=== PATIENT | male | born 1950 | race Caucasian/White ===

== ENCOUNTER 2023-05-24 18:16 | Emergency (ER) | payer MEDICARE, OTHER ==
[2023-05-24 19:10] LABS: BASOPHILS # (AUTO) 0.1 10^3/uL (0.0-0.1); BASOPHILS % (AUTO) 1.4 %; EOSINOPHILS # (AUTO) 0.1 10^3/uL (0.0-0.7); EOSINOPHILS % (AUTO) 0.7 %; HCT - HEMATOCRIT 37.5 % (42.0-52.0); HGB - HEMOGLOBIN 12.4 g/dL (14.0-18.0); LYMPHOCYTES # (AUTO) 1.6 10^3/uL (1.5-3.5); LYMPHOCYTES % (AUTO) 21.9 %; MEAN CORPUSCULAR HGB CONC 33.1 g/dL (32.0-36.0); MEAN CORPUSCULAR VOLUME 87.6 fL (80.0-94.0); MONOCYTES # (AUTO) 0.8 10^3/uL (0.0-1.0); MONOCYTES % (AUTO) 10.5 %; NEUTROPHILS # (AUTO) 4.7 10^3/uL (1.5-6.6); NEUTROPHILS % (AUTO) 64.8 %; PLT - PLATELET COUNT 331 10^3/uL (130-450); RED BLOOD COUNT 4.28 10^6/uL (4.70-6.10); RED CELL DISTRIBUTION WIDTH 12.9 % (12.0-15.0); WHITE BLOOD COUNT 7.2 x10^3/uL (4.8-10.8)
[2023-05-24 19:21] LABS: ALBUMIN/GLOBULIN RATIO 1.3 (1.0-2.2); BILIRUBIN,TOTAL 1.2 mg/dL (0.2-1.0); CREATININE 0.8 mg/dL (0.6-1.2); POTASSIUM 3.7 mmol/L (3.5-5.0)
--- NOTE | 2023-05-24 19:34 | ED Physician Documentation ---
History of Present Illness - Stated complaint Stated Complaint: CONFUSED/WEAKNESS - Chief complaint Chief Complaint: General - Additonal information Additional information: Patient 73-year-old male presenting to the emergency department with generalized weakness and diffuse myalgias x6 weeks. Reports has history of chronic knee pain. Received an arthrocentesis to his right knee approximately 6 weeks ago At an outside hospital in [place]. Since that time reports has had general body aches, pain particularly with his joints including shoulders bilaterally, fatigue that is made it difficult for him to get moving in the mornings and at night. And pain particularly at night that is diffuse and total body. He endorses for a low-grade fever of 99.0 a few days ago. States has been taking ibuprofen at home with minimal relief. Does report that he has follow-up with his primary care doctor at the [facility] in the next few days. Review of Systems Constitutional: reports: Fever, Myalgias, Fatigue Eyes: denies: Loss of vision Ears: denies: Loss of hearing Nose: denies: Rhinorrhea / runny nose Throat: denies: Dental pain / toothache Cardiac: denies: Chest pain / pressure Respiratory: denies: Dyspnea GI: denies: Abdominal Pain : denies: Dysuria Musculoskeletal: reports: Extremity pain, Joint pain Neurologic: reports: Generalized weakness. denies: Focal weakness, Numbness, Difficulty speaking, Near syncope, Syncope, Seizure, Confused, Altered mental status, Unresponsive, Headache Endocrine: reports: Polydypsia Immunocompromised: reports: Immunocompromised PD PAST MEDICAL HISTORY - Present Medications Home Medications: Ambulatory Orders Medication Instructions Recorded Confirmed predniSONE [Deltasone] 20 mg PO DAILY #5 tablet 05/24/23 - Allergies Allergies/Adverse Reactions: Allergies Allergy/AdvReac Type Severity Reaction Status Date / Time No Known Drug Allergies Allergy Verified 05/24/23 18:23 Results - Vitals Vitals: Vital Signs - 24 hr 05/24/23 05/24/23 05/24/23 18:23 20:42 21:39 Temperature 37.4 C Heart Rate 106 H 63 66 Respiratory 20 16 16 Rate Blood Pressure 134/74 H 127/74 126/75 O2 Saturation 99 100 100 Oxygen O2 Source Room air - EKG (time done) 2031 EKG releavant findings:: EKG personally interpreted by author of this note. Relevant findings are: Sinus rhythm with rate 64 bpm. Normal axis. Normal IA, QRS, QTc intervals. No ST segment elevations or T wave inversions. - Labs Labs: Laboratory Tests 05/24/23 05/24/23 05/24/23 19:00 19:03 19:03 WBC 7.2 RBC 4.28 L Hgb 12.4 L Hct 37.5 L MCV 87.6 MCH 29.0 MCHC 33.1 RDW 12.9 Plt Count 331 MPV 9.0 Neut # (Auto) 4.7 Lymph # (Auto) 1.6 [place] # (Auto) 0.8 Eos # (Auto) 0.1 Baso # (Auto) 0.1 Absolute Nucleated RBC 0.00 Nucleated RBC % 0.0 Sodium 137 Potassium 3.7 Chloride 104 Carbon Dioxide 25 Anion Gap 8.0 BUN 27 H Creatinine 0.8 Estimated GFR (MDRD) 95 Glucose 169 H Estimat Average Glucose Hemoglobin A1c % Calcium 9.0 Total Bilirubin 1.2 H AST 15 ALT 13 Alkaline Phosphatase 101 Total Creatine Kinase C-Reactive Protein Total Protein 7.0 Albumin 4.0 Globulin 3.0 Albumin/Globulin Ratio 1.3 Lipase 47 Urine Color DARK YELLOW Urine Clarity CLEAR Urine pH 5.5 Ur Specific [place] >=1.030 H Urine Protein NEGATIVE Urine Glucose (UA) 100 H Urine Ketones TRACE Urine Occult Blood NEGATIVE Urine Nitrite NEGATIVE Urine Bilirubin NEGATIVE Urine Urobilinogen 0.2 (NORMAL) Ur Leukocyte Esterase NEGATIVE Ur Microscopic Review NOT INDICATED Urine Culture Comments NOT INDICATED 05/24/23 05/24/23 19:03 19:03 WBC RBC Hgb Hct MCV MCH MCHC RDW Plt Count MPV Neut # (Auto) Lymph # (Auto) [place] # (Auto) Eos # (Auto) Baso # (Auto) Absolute Nucleated RBC Nucleated RBC % Sodium Potassium Chloride Carbon Dioxide Anion Gap BUN Creatinine Estimated GFR (MDRD) Glucose Estimat Average Glucose 100 Hemoglobin A1c % 5.1 Calcium Total Bilirubin AST ALT Alkaline Phosphatase Total Creatine Kinase 22 C-Reactive Protein 3.5 H Total Protein Albumin Globulin Albumin/Globulin Ratio Lipase Urine Color Urine Clarity Urine pH Ur Specific [place] Urine Protein Urine Glucose (UA) Urine Ketones Urine Occult Blood Urine Nitrite Urine Bilirubin Urine Urobilinogen Ur Leukocyte Esterase Ur Microscopic Review Urine Culture Comments PD Medical Decision Making - ED course Complexity details: reviewed old records, reviewed results, re-evaluated patient, considered differential, d/w patient, d/w family ED course: Patient is 73-year-old male presenting to the emergency department with several weeks of myalgias, fatigue worse in the morning. He specifically describes myalgias and discomfort around his hips and shoulders. No headache, blurred vision or double vision. Reports and [facility] that demonstrated an elevated C-reactive protein greater than 10. Lab work in the emergency department today is reassuring although he does demonstrate a mild elevation in C-reactive protein at 3.5. No indications of rhabdomyolysis or severe electrolyte abnormality. He was mildly hyperglycemic and I did obtain a hemoglobin A1c which was within normal limits. Overall his clinical presentation is concerning for polymyalgia rheumatica given that he has had symptoms ongoing for greater than the last 2 weeks with elevated C-reactive protein and I discussed this possibility with him. He was amenable to trialing a course of oral prednisone to see if this improves his symptoms. I will otherwise encourage him to follow-up with his primary care doctor or return to the emergency department. Departure - Departure Disposition: 01 Home, Self Care Clinical Impression: Polymyalgia rheumatica Prescriptions: predniSONE [Deltasone] 20 mg PO DAILY #5 tablet Comments: Thank you for allowing us to care for you today at [facility]. Today in the emergency department your evaluated for any possible life- threatening medical emergency. Overall your testing here in the emergency department including your blood work, urine analysis and your EKG were reassuring. Your hemoglobin A1c was 5.1 which is within a normal limit. You did have an elevated CRP at 3.5. Overall your symptoms including your generalized weakness, low level fevers at home and joint pain/myalgias are consistent with a condition known as polymyalgia rheumatica. As we discussed definitive diagnosis of this condition can be difficult and it is extremely important that you follow-up with your primary care doctor. And we discussed options here in the emergency department and you feel comfortable beginning a short course of oral steroids. You are given a dose of a long-acting oral steroid on his Decadron here in the emergency department and I have written a prescription for low-dose prednisone to be taken for the next 5 days. Please follow-up with your primary care doctor soon as possible. If it anytime you develop new or worsening symptoms please not hesitate to return. Discharge Date/Time: 05/24/23 21:47
[2023-05-24 19:44] LABS: GLUCOSE, URINE (UA) 100 mg/dL (NEGATIVE); KETONES,URINE (UA) TRACE mg/dL (NEGATIVE); LEUKOCYTE ESTERASE, URINE NEGATIVE (NEGATIVE); NITRITE,URINE NEGATIVE (NEGATIVE); OCCULT BLOOD,URINE NEGATIVE (NEGATIVE); PH,URINE 5.5 PH (5.0-7.5); PROTEIN,URINE NEGATIVE (NEGATIVE); UROBILINOGEN,URINE 0.2 (NORMAL) E.U./dL (NORMAL)
[2023-05-24] MEDS ORDERED: INDOMETHACIN 25 MG CAPSULE PO STA (19:48)
[2023-05-24 19:49] LABS: BILIRUBIN,URINE NEGATIVE (NEGATIVE); CLARITY,URINE CLEAR (CLEAR); ICTOTEST,URINE NEGATIVE
[2023-05-24] MEDS ORDERED: KETOROLAC 60 MG/2 ML VIAL IM STA (20:02)
[2023-05-24 20:05] LABS: CRP - C-REACTIVE PROTEIN 3.5 mg/dL (0-1.0)
[2023-05-24 20:42] LABS: ESTIMATED AVERAGE GLUCOSE 100 mg/dL (70-100); HEMOGLOBIN A1c% 5.1 % (4.27-6.07)
[2023-05-24] MEDS ORDERED: DEXAMETHASONE 10 MG/ML VIAL PO STA (21:01)
[2023-05-24] MEDS ORDERED: CHERRY SYRUP 10 ML UDC PO ONE (21:01)
[2023-05-24 21:40] VITALS: BP 126/75
== END 2023-05-24 21:47 | disposition home or self-care (01) ==
LOC: ED 18:16
DX: M35.3 Polymyalgia rheumatica (principal)
CPT/HCPCS: 36415; 80053; 81003; 82550; 83036; 83690; 85025; 86140; 93005; 99283; 99284; A9270; 81001; 87086

== ENCOUNTER 2023-09-03 12:40 | Outpatient (CLI) | payer MEDICARE ==
[2023-09-03 20:03] LABS: BASOPHILS # (AUTO) 0.1 10^3/uL (0.0-0.1); BASOPHILS % (AUTO) 0.8 %; EOSINOPHILS % (AUTO) 0.5 %; HCT - HEMATOCRIT 40.9 % (42.0-52.0); LYMPHOCYTES # (AUTO) 1.2 10^3/uL (1.5-3.5); LYMPHOCYTES % (AUTO) 19.5 %; MEAN CORPUSCULAR HGB CONC 31.8 g/dL (32.0-36.0); MEAN CORPUSCULAR VOLUME 91.3 fL (80.0-94.0); MEAN PLATELET VOLUME 9.1 fL (7.4-11.4); MONOCYTES # (AUTO) 0.3 10^3/uL (0.0-1.0); MONOCYTES % (AUTO) 5.5 %; NEUTROPHILS # (AUTO) 4.4 10^3/uL (1.5-6.6); NEUTROPHILS % (AUTO) 72.7 %; NRBC ABSOLUTE COUNT (AUTO) 0.04 x10^3/uL; NUCLEATED RED BLOOD CELLS AUTO 0.7 /100WBC; PLT - PLATELET COUNT 246 10^3/uL (130-450); RED BLOOD COUNT 4.48 10^6/uL (4.70-6.10); RED CELL DISTRIBUTION WIDTH 15.3 % (12.0-15.0)
[2023-09-03 20:25] LABS: THYROID STIMULATING HORMONE 2.23 uIU/mL (0.34-5.60)
[2023-09-03 20:47] LABS: ALBUMIN 4.5 g/dL (3.2-5.5); ALBUMIN/GLOBULIN RATIO 2.1 (1.0-2.2); ALKALINE PHOSPHATASE 64 IU/L (42-121); ALT ALANINE AMINOTRANSFERASE 16 IU/L (10-60); AST ASPARTATE AMINOTRANSFERASE 17 IU/L (10-42); BILIRUBIN,TOTAL 1.9 mg/dL (0.2-1.0); BUN - BLOOD UREA NITROGEN 17 mg/dL (6-20); CALCIUM 9.4 mg/dL (8.5-10.3); CARBON DIOXIDE - CO2 28 mmol/L (21-32); CHLORIDE 108 mmol/L (101-111); CHOL/HDL RATIO 3.1 (<5.0); CHOLESTEROL 217 mg/dL; CREATININE 0.7 mg/dL (0.6-1.3); CRP - C-REACTIVE PROTEIN < 0.5 mg/dL (<0.5); GFR - MDRD 111 (>89); GLUCOSE 99 mg/dL (74-104); HDL CHOLESTEROL 71 mg/dL; LDL CHOLESTEROL,CALCULATED 127 mg/dL; LDL/HDL RATIO 1.8 (<3.6); POTASSIUM 4.3 mmol/L (3.5-4.5); SODIUM 140 mmol/L (135-145); TOTAL PROTEIN 6.6 g/dL (6.4-8.9); TRIGLYCERIDES 97 mg/dL (48-352); URIC ACID 6.7 mg/dL (4.4-7.6); VLDL CHOLESTEROL 19 mg/dL
[2023-09-03 22:05] LABS: RHEUMATOID FACTOR NEGATIVE (Negative)
[2023-09-05 17:09] LABS: ANTI-DNA (DS) AB QN <1 IU/mL (0-9)
[2023-09-06 16:08] LABS: ANTINUCLEAR ANTIBODIES IFA Negative (.)
[2023-09-06 17:08] LABS: CYCLIC CITRULLINATED PEP IGG/A 0 units (0-19)
== END 2023-09-03 12:41 | disposition home or self-care (01) ==
LOC: LAB.S 12:40
PROVIDERS: ATTEND Registered Nurse
DX: M35.3 Polymyalgia rheumatica (principal); Z13.220 Encounter for screening for lipoid disorders; Z13.228 Encounter for screening for other metabolic disorders; Z13.29 Encounter for screening for other suspected endocrine disorder; Z13.0 Encounter for screening for diseases of the blood and blood-forming organs and certain disorders involving the immune mechanism
CPT/HCPCS: 36415; 80053; 80061; 83721; 84443; 84550; 85025; 85027; 85651; 86038; 86140; 86200; 86225; 86430